=== PATIENT | male | born 1940 | race Caucasian/White ===

== ENCOUNTER → 2022-08-27 | Outpatient (CLI) | payer MEDICARE ==
[2022-08-27 15:00] LABS: INR 1.1 (<1.2); Partial Thromboplastin Time 27.4 sec (22.0-30.0); Prothrombin Time 11.1 sec (9.0-12.0)
[2022-08-27 20:15] LABS: Appearance,Urine Clear (Clear); Bilirubin,Urine Negative (Negative); Blood,Urine Negative (Negative); Color,Urine Yellow (Yellow); Ketones,Urine Negative (Negative); Nitrite,Urine Negative (Negative); PH, Urine 6.5 (5.0-8.0); Specific Gravity,Urine 1.014 (1.001-1.030); Urobilinogen,Urine 0.2 (0.2,1.0)
[2022-08-27 21:25] LABS: HCT 47.1 % (39.6-50.0); HGB 15.6 g/dL (13.0-17.0); MCH 28.8 pg (27.0-32.0); MCHC 33.1 g/dL (32.0-37.0); MCV 86.9 fL (80.0-97.0); Mean Platelet Volume 12.5 fL (9.5-12.2); NRBC Per 100 WBC 0 /100 WBCS (0.0-0.0); Platelet Count 140 X 10*3/uL (140-440); RBC 5.42 X 10*6/uL (4.40-5.60); RDW 13.7 % (11.5-14.5); WBC 8.31 X 10*3/uL (4.50-10.00)
[2022-08-27 22:33] LABS: African American GFR (CKD) 97.8 (60.0-200.0); Albumin 4.8 g/dL (3.8-4.9); Albumin/Globulin Ratio 2.53 (1.60-3.17); Anion Gap 11.1 mmol/L (10.00-18.00); BUN/Creat Ratio 18.88 Ratio (12.00-20.00); Blood Urea Nitrogen 15.1 mg/dL (9.0-27.0); Calcium 10.5 mg/dL (8.7-10.3); Carbon Dioxide 26.9 mmol/L (20.0-27.5); Globulin 1.9 g/dL (1.6-3.3); Non-African American GFR(CKD) 84.4 (60.0-200.0); Potassium 4.3 mmol/L (3.5-5.5); Total Bilirubin 0.6 mg/dL (0.30-1.20); Total Protein 6.7 g/dL (6.2-8.2)
== END | disposition home or self-care (01) ==
LOC: EEVIPCON 12:17 → LABWHC1 12:17
PROVIDERS: ATTEND Orthopaedic Surgery
DX: Z01.812 Encounter for preprocedural laboratory examination (principal); M16.12 Unilateral primary osteoarthritis, left hip
CPT/HCPCS: 36415; 80053; 81003; 85027; 85610; 85730; 87070; 93005

== ENCOUNTER 2022-09-05 10:19 | Observation (INO) | payer MEDICARE ==
[2022-08-30 13:32] VITALS: BMI 30.5
[~2022-09-05 10:19] MED LIST: ACETAMINOPHEN TAB 500 MG TAB PO PRN; DEXAMETHASONE SOD PHOSPHATE 10 MG/ML 1 ML VIAL IV PRN; DEXAMETHASONE SOD PHOSPHATE 4 MG/ML 1 ML VIAL IV ONE; DOCUSATE 100 MG CAP PO PRN; FAMOTIDINE 20 MG/2 ML VIAL IVP PRN; HYDROmorphone 0.5 MG/0.5 ML SYRINGE IVP PRN; KETOROLAC 15 MG/ML 1 ML VIAL IVP PRN; LIDOCAINE 1% (10MG/ML) FOR IV START INTRADERMA PRN; MIDAZOLAM 2 MG/2 ML VIAL IV PRN; ONDANSETRON 4 MG/2 ML VIAL IVP ONE; ONDANSETRON 4 MG/2 ML VIAL IVP PRN; ROPIVACAINE/EPI/CLONIDINE/KET 50 ML SYRINGE MISCELLANE PRN; TRANEXAMIC ACID IN NACL,ISO-OS 1,000 MG in SALINE 1 100ML.BAG IV PRN; TRANEXAMIC ACID IN NACL,ISO-OS 1,000 MG in SALINE 1 100ML.BAG IVPB PRN; oxyCODONE ER 10 MG TAB.ER.12H PO PRN
[2022-09-05] MEDS: LACTATED RINGERS 1,000 ML IV SCH ×3 (11:28→20:14)
[2022-09-05] MEDS ORDERED: fentaNYL (PF) 50 MCG/ML 2 ML AMP IVP ONE (11:43)
[2022-09-05] MEDS ORDERED: MIDAZOLAM 2 MG/2 ML VIAL IVP ONE (11:43)
[2022-09-05] MEDS ORDERED: NEOSTIGMINE 1 MG/ML 10 ML VIAL ONE (12:22)
[2022-09-05] MEDS ORDERED: SUCCINYLCHOLINE CHLORIDE 200 MG/10 ML VIAL IV ONE (12:22)
[2022-09-05] MEDS ORDERED: LIDOCAINE 2% INJ 20 MG/ML (2 ML VIAL) ONE (12:22)
[2022-09-05] MEDS ORDERED: ROPIVACAINE 5 MG/ML 30 ML VIAL ONE (12:22)
[2022-09-05] MEDS ORDERED: TRANEXAMIC ACID IN NACL,ISO-OS 1,000 MG/100 ML BAG ONE (12:22)
[2022-09-05] MEDS ORDERED: ROCURONIUM 10 MG/ML (5 ML VIAL) IV ONE (12:22)
[2022-09-05] MEDS ORDERED: SODIUM CHLORIDE 0.9% (PF) 10 ML VIAL ONE (12:22)
[2022-09-05] MEDS ORDERED: GLYCOPYRROLATE 0.2 MG/ML 2 ML VIAL ONE (12:22)
[2022-09-05] MEDS ORDERED: PROPOFOL 10 MG/ML 20 ML VIAL IV ONE (12:22)
[2022-09-05] MEDS ORDERED: fentaNYL (PF) 50 MCG/ML 2 ML AMP ONE (12:22)
[2022-09-05] MEDS ORDERED: MIDAZOLAM 2 MG/2 ML VIAL ONE (12:22)
--- NOTE | 2022-09-05 12:50 | P.ANPRN ---
Procedure Note - Anesthesia - Nerve Block Performed Left Mathieu Time Out Performed: Yes (:43) Date of Procedure: 09/05/22 Procedure Start Time: Procedure Stop Time: :50 Location of Patient: PreOp Indication: Acute Post-Operative Pain, Requested by Surgeon (DR Gonzales) Sedation Type: Sedate with meaningful contact maintained Preparation: Sterile Prep Position: Supine Catheter: None Needle Types: Pajunk Needle Gauge: 21 Ultrasound used to visualize needle placement: Yes Ultrasound used to observe medication spread: Yes Injectate: 0.5% Ropivacaine (see comment for volume) (20cc + 5cc PF Normal saline) Blood Aspirated: No Pain Paresthesia on Injection Noted: No Resistance on Injection: Normal Image Stored and Saved: Yes Events: Uneventful and Well Tolerated
[2022-09-05] MEDS ORDERED: LACTATED RINGERS 1,000 ML IV ONE (13:17)
--- NOTE | 2022-09-05 15:03 | FL ---
EXAMINATION TYPE: FL guidance operating room DATE OF EXAM: 09/05/2022 HISTORY: Fluoroscopy time Total dose area product (DAP) in mGy*cm? (or similar): 2.3292 IMPRESSION: 1. Fluoroscopy time.
[2022-09-05] MEDS ORDERED: HYDROmorphone 0.5 MG/0.5 ML SYRINGE IVP PRN ×2 (15:14)
[2022-09-05] MEDS ORDERED: hydrOXYzine pamoate 25 MG CAP PO PRN (15:14)
[2022-09-05] MEDS ORDERED: ONDANSETRON 4 MG/2 ML VIAL IVP PRN (15:14)
[2022-09-05] MEDS ORDERED: NALOXONE 0.4 MG/ML 1 ML VIAL IV PRN (15:14)
--- NOTE | 2022-09-05 15:20 | P.OP ---
Date of Procedure: 09/05/22 Preoperative Diagnosis: 1. Severe left hip osteoarthritis 2. Prior right total hip arthroplasty Postoperative Diagnosis: Same Procedure(s) Performed: Left direct anterior total hip arthroplasty Implants: 1. Andrew Trident II Acetabular Cup, Size #52 2. [place] Insignia Size # 6 Femoral Stem, Standard Offset 3. Biolox delta femoral head, 36 mm, - 5 neck Anesthesia: KYLEEA, regional Surgeon: Tee Gonzales Solar Energy Engineer #1: Tashia Crocker Estimated Blood Loss (ml): 200 IV fluids (ml): 1,100 Pathology: none sent Condition: stable Disposition: PACU Indications for Procedure: I had a long discussion with the patient in the office on the potential risks and complications of an elective total hip replacement through a direct anterior approach. Risks discussed include, but are certainly not limited to, risks from anesthesia, superficial infection requiring local wound care or antibiotics, deep sawyer-prosthetic joint infection and the treatment required to eradicate infection, intraoperative fracture, postoperative periprosthetic fracture, damage to local blood vessels or nerves particularly the lateral femoral cutaneous nerve, delayed wound healing requiring local wound care or possibly hallman rgical debridement, hip dislocation, leg length discrepancy, soft tissue irritation around the total hip implant such as iliopsoas tendinitis or trochanteric bursitis, wear and osteolysis from the implants, squeaking or audible noises, groin pain, thigh pain, heterotopic ossification, stiffness, aseptic loosening of the implants, dissatisfaction with surgical outcome, need for revision surgery, DVT, PE, swelling of the operative extremity, acute coronary event, stroke, failure to thrive, and possibly loss of life or limb. The patient understands that while these are the most common complications after an elective hip replacement there are certainly other less common complications possible. They were given ample time to ask questions regarding the potential complications of a hip replacement. Following our discussion the patient provided their verbal and written consent to go forward with an elective total hip replacement. Operative Findings: Prior to surgery before positioning the patient on the [place] table the patient's operative left hip felt long compared to the right side which had a prior total hip replacement. During surgery measurements were made with trial and final implants in place showing that we gave 3-4 mm of length for stability. Following surgery the patient's left leg was slightly long compared to the right. Prior to surgery the patient stated that his left leg felt long compared to the right and that he had been told by a therapist that his left leg was long. We discussed that I could not shorten his left leg due to concerns with stability. He voiced his understanding of this. Description of Procedure: The patient was identified in the preoperative holding area and the correct hip was marked with my initials. I reviewed the procedure and consent with the patient. All of their questions were answered. The patient was then brought back into the operating room by anesthesia. While on the [facility] anesthesia was administered by the anesthesia team. Preoperative antibiotics and tranexamic acid were also given. After the patient was under anesthesia I examined their ankles to determine their preoperative leg length discrepancy. The skin over the anterior aspect of the hip was shaved to remove hair over the site of planned incision. Both feet and ankles were padded with webril and boots for the [place] were applied. The patient was then carefully transferred onto the [place] table. A perineal post was immediately placed. The arms were placed on arm holders and were well-padded. Both boots were secured to the spars on the [place] table. The patient was positioned so that the pelvis was centered over the post. Nonsterile drapes were applied. A timeout was performed identifying the correct patient, operative extremity, and procedure. At this point fluoroscopy was brought in to take preoperative images of the pelvis and operative hip. Using the standing AP pelvis from the office as a template, a comparable image was obtained with fluoroscopy. A metallic bar was used to create a bi-ischial line for use as a reference to leg length adjustments during the procedure. Global offset was also measured on both the operative and nonoperative leg. Fluoroscopy was then brought out and a pre-scrub using a chlorhexidine scrub brush was performed. The operative limb was then prepped and draped in the standard sterile fashion. An anterior longitudinal incision was made lateral and distal to the ASIS. The skin and subcutaneous tissues were incised sharply. The underlying tensor fascia was identified and incised in its midportion. The fascia was dissected free from the underlying muscle and the muscle belly was retracted. A blunt tipped cobra retractor was placed over the superior neck under the muscle fibers of the gluteus minimus. The deep enveloping fascia of the tensor was incised. The anterior leash of vessels were then identified and cauterized. The fascia between the rectus and the capsule was then incised and the pre-capsular fat was excised. A second Cobra was placed inferior to the neck. The interval between the rectus and iliocapsularis and the hip capsule was developed and a retractor was placed carefully over the anterior rim of the acetabulum. A T-shaped anterior capsulotomy was performed. The superior capsular leaflet was left in place in the inferior capsular flap was excised. The Cobra retractors were placed intracapsularly. We then made a femoral neck osteotomy according to preoperative and intraoperative templating and confirmed the level of the osteotomy using fluoroscopic imaging. The femoral head was removed, passed off to the back table, and sized. The superior capsular flap was excised. Retractors were placed circumferentially exposing the acetabulum. We then circumferentially debrided the acetabulum free of labrum and osteophytes. The pulvinar was removed to fully visualize the cotyloid fossa. We then sequ entially reamed to achieve peripheral fit and excellent bleeding subchondral bone. The socket was thoroughly irrigated. The acetabular component was impacted into the appropriate position using fluoroscopy to guide version, inclination, and depth of insertion taking care to have a comparable image of the AP pelvis to the standing image taken in the office. An excellent press-fit was achieved and final position was confirmed using fluoroscopy. The press fit was augmented with bony cancellus dome screws. The liner was then impacted into the socket. Attention was then turned to the femur. The remnant dorsal lateral capsule was excised. The short external rotators were visible and protected. A bone hook was used to confirm appropriate translation of the trochanter away from the acetabulum. The leg was then extended and adducted and the bone hook was used to elevate the femur for broaching. A box osteotome and blunt tipped canal sound was then utilized to gain access to the femoral canal. We then sequentially broached the femur in appropriate anteversion until excellent torsional stability was achieved. The neck cut was brought flush to the trial broach with a calcar planar. A trial neck and head were then placed onto the broach and the hip was atraumatically reduced under direct visualization. External rotation to 90 was performed to assess stability. Fluoroscopy was brought in. An AP and lateral fluoroscopic image of the proximal femur was obtained to assess position and fill of the trial broach. An AP of the pelvis was then obtained and matched to the preoperative image taken. A bi-ischial bar was then placed and measurements were taken to assess changes in length and offset. The hip was then carefully dislocated, the proximal femur was exposed, and the trial implants were removed. The wound and proximal femur was thoroughly irrigated using sterile saline and pulsatile lavage. The final femoral implant was dispensed and gently tapped into place generating an excellent press-fit. The trunnion was cleansed and the final head was tapped into place to engage the Fowler taper. The acetabulum was irrigated and visualized to be free of debris. The hip was carefully reduced. Stability was checked clinically with external rotation to 90 and there was no evidence of instability. Final fluoroscopic images were taken. The wound was then thoroug hly irrigated and soaked with a dilute Betadine rinse for 3 minutes. 3 L of sterile saline was irrigated through the wound using pulsatile lavage. Local anesthetic cocktail was injected into the soft tissues around the surgical field. A deep drain was placed. The wound was then closed in layers. A sterile dressing was placed over the surgical incision and drain site. The drapes were taken down and the patient was carefully transferred off of the [place] table. Following removal of the boots the leg lengths felt acceptable. The patient was then taken to recovery room having tolerated the procedure well. Tashia Crocker PA-C was required as a skilled emergency medicine physician assistant for patient positioning, surgical exposure, retraction, placement of implants, and closure of the surgical wound. PLAN: The patient can weight-bear as tolerated on the operative extremity. 2 doses of postoperative antibiotics. DVT prophylaxis with aspirin 81 mg twice a day based on preoperative risk stratification. Physical therapy for gait training. Discontinue drain postoperative day #1 if output is less than 100 mL per shift.
[2022-09-05] MEDS: ASPIRIN 81 MG PO SCH (20:24)
[2022-09-06] MEDS: LACTATED RINGERS 1,000 ML IV SCH ×3 (01:28→12:07)
[2022-09-06] MEDS: HYDROcodone/APAP 5-325MG 1 EACH TAB PO PRN ×3 (08:02→18:41)
[2022-09-06] MEDS: ASPIRIN 81 MG PO SCH ×2 (08:02→23:03)
[2022-09-06] MEDS ORDERED: AMMONIUM LACTATE 12% LOTION 225 GM BTL TOPICAL PRN (09:48)
[2022-09-06] MEDS ORDERED: lisinopriL 20 MG TAB PO STA (09:51)
[2022-09-06] MEDS: MULTIVITAMINS, THERA 1 EACH TAB PO SCH (10:33)
[2022-09-06] MEDS: TAMSULOSIN 0.4 MG CAP.ER.24H PO SCH (12:07)
[2022-09-06 12:26] LABS: Basophils # (A) 0.02 X 10*3/uL (0.00-0.10); Basophils % (A) 0.1 %; Eosinophils # (A) 0 X 10*3/uL (0.04-0.35); Eosinophils % (A) 0 %; HCT 38.2 % (39.6-50.0); HGB 12.9 g/dL (13.0-17.0); Immature Grans, Automated 0.6 %; Lymphocytes # (A) 1.44 X 10*3/uL (0.90-5.00); Lymphocytes % (A) 8.7 %; MCH 29.1 pg (27.0-32.0); MCHC 33.8 g/dL (32.0-37.0); Mean Platelet Volume 11.7 fL (9.5-12.2); Monocytes # (A) 1.28 X 10*3/uL (0.20-1.00); Monocytes % (A) 7.7 %; NRBC Per 100 WBC 0 /100 WBCS (0.0-0.0); Neutrophils % (A) 82.9 %; Platelet Count 133 X 10*3/uL (140-440); RBC 4.44 X 10*6/uL (4.40-5.60); RDW 13.5 % (11.5-14.5); WBC 16.54 X 10*3/uL (4.50-10.00)
--- NOTE | 2022-09-06 13:00 | P.PN ---
Subjective Progress Note Date: 09/06/22 Patient is an 82-year-old male who is status post left direct anterior total hip arthroplasty on 09/05/22. Today is postoperative day #1. Patient examined bedside this morning with Dr. Gonzales. He states he is having minimal pain in the left hip. He is ambulating to the bathroom with a walker. He is overall doing well with no complaints. He is planning to discharge to rehab. Vital signs stable. Objective - Vital Signs Vital signs: Vital Signs Temp 97.6 F 09/06/22 08:00 Pulse 57 L 09/06/22 08:00 Resp 18 09/06/22 08:00 BP 142/63 09/06/22 08:00 Pulse Ox 93 L 09/06/22 08:00 FiO2 Intake & Output 09/05/22 09/06/22 09/06/22 18:59 06:59 18:59 Intake Total 1650 Output Total 200 1465 356 Balance 1450 -1465 -356 Weight 91.9 kg Intake: IV 1650 Output: Drainage 265 Left Hip 265 Urine 1200 Straight 600 Post Void Residual 356 Estimated Blood Loss 200 Other: # Voids 1 - Exam On examination, patient is sitting up in bed in no apparent distress. He is alert and orientated 3. On inspection of the left hip, there is a clean, dry, intact OpSite surgical dressing in place. No bleeding or drainage to the dressing. There is mild swelling of the thigh, the thigh is soft and compressible. Motor and sensory function is intact on the left lower extremity. Femoral nerve function intact. Left lower extremity is warm and well perfused with brisk capillary refill distally. Calf is soft and nontender to palpation pain - Labs CBC & Chem 7: 09/06/22 06:44 Labs: Abnormal Lab Results - Last 24 Hours (Table) 09/06/22 Range/Units 06:44 WBC 16.54 H (4.50-10.00) X 10*3/uL Hgb 12.9 L (13.0-17.0) g/dL Hct 38.2 L (39.6-50.0) % Plt Count 133 L (140-440) X 10*3/uL Immature Gran # 0.10 H (0.00-0.04) X 10*3/uL Neutrophils # 13.70 H (1.80-7.70) X 10*3/uL Monocytes # 1.28 H (0.20-1.00) X 10*3/uL Eosinophils # 0 L (0.04-0.35) X 10*3/uL Assessment and Plan Assessment: Status-post left direct anterior total hip arthroplasty on 09/05/22. Post- operative day #1. Plan: - Weight-bear to tolerance on operative extremity the walker. - Physical therapy for gait and balance training. - Keep operative dressing in place. Do not remove. Patient may shower over dressing. - Pain medications as needed. - Aspirin 81 mg BID for DVT prophylaxis. - Internal medicine for sawyer-op medical management. - Case management consult for discharge planning. Anticipate discharge to rehab next 1-2 days.
--- NOTE | 2022-09-06 16:11 | P.CONS ---
History of Present Illness - Reason for Consult Consult date: 09/06/22 Medical management postop left total hip arthroplasty - History of Present Illness This is a very pleasant 82-year-old male who was recently admitted under orthopedic services and underwent left total hip arthroplasty postop day #1. Patient reports he follows with Dr. Alanis in the outpatient setting with a past medical history of hypertension. Patient has never been a smoker. Patient denies illicit drug use and reports to occasional rare alcohol use. Patient reports in the past he did have issues with an enlarged prostate and was evaluated by urology underwent surgical intervention and has not had problems s tahmina. Patient postoperatively having some mild retention and did have indwelling Snow catheter which was removed. Patient required straight catheterization. Will add Flomax and recommend to monitor intake and output closely and do postvoid residuals to monitor for any further retention. Patient normally takes combination lisinopril/hydrochlorothiazide and will resume lisinopril and hold the hydrochlorothiazide for now as blood pressure is slightly elevated. Patient did work with physical therapy and does not have much help with the home as his has medical issues and working on possible [employer] for some strength and mobility. Patient reports he had a previous right hip done and went to rehab and did really well. Patient denies chest pain or shortness of breath with no reports of nausea or vomiting noted in tolerating diet. Review Of Systems: Constitutional: No fever, no chills, no night sweats. No weight change. No weakness, fatigue or lethargy. No daytime sleepiness. EENT: No headache. No blurred vision or double vision, no loss of vision. No loss of Hearing, no ringing in the ears, no dizziness. No nasal drainage or congestion. No epistaxis. No sore throat. Lungs: No shortness of breath, cough, no sputum production. No wheezing. Cardiovascular: No chest pain, no lower extremity edema. No palpitations. No paroxysmal nocturnal dyspnea. No orthopnea. No lightheadedness or dizziness. No syncopal episodes. Abdominal: No abdominal pain. No nausea, vomiting. No diarrhea. No constipation. No bloody or tarry stools.. No loss of appetite. Genitourinary: No dysuria, increased frequency, urgency. Reporting some mild urinary retention. Musculoskeletal: No myalgias. No muscle weakness, no gait dysfunction, no frequent falls. No back pain. No neck pain. Reports mild left hip pain although managed currently Integumentary: No wounds, no lesions. No rash or pruritus. No unusual bruising. No change in hair or nails. Neurologic: No aphasia. No facial droop. No change in mentation. No head injury. No headache. No paralysis. No paresthesia. Psychiatric: No depression. No anxiety. No mood swings. Endocrine: No abnormal blood sugars. No weight change. No excessive sweating or thirst. No cold intolerance. PHYSICAL EXAMINATION: GENERAL: The patient is alert and oriented x4, Well developed, well nourished. HEENT: Pupils are round and equally reacting to light. EOMI. no scleral icterus. No conjunctival pallor. Normocephalic, atraumatic. No pharyngeal erythema. No thyromegaly. CARDIOVASCULAR: S1 and S2 muffled PULMONARY: Breath sounds clear to auscultation with no wheezing or rhonchi noted. ABDOMEN: soft. Nontender on exam. non-distended, normoactive bowel sounds. No palpable organomegaly. MUSCULOSKELETAL: No joint swelling or deformity. EXTREMITIES: No cyanosis, clubbing, or pedal edema. Left surgical hip incision dressing is dry and intact with no surrounding swelling or erythema noted, soft and palpable NEUROLOGICAL: Gross neurological examination did not reveal any focal deficits. Diffuse weakness SKIN: No rashes. Assessment: Status post left total hip arthroplasty History of osteoarthritis Postoperative urinary retention, most likely medication effect of anesthesia History of hypertension History of enlarged prostate with surgical intervention back in 2005 GI prophylaxis DVT prophylaxis Full code Plan: Recommend to continue with current medications and management per orthopedic services. Patient did work with physical therapy and would like to go to rehab with case management following and awaiting insurance authorization Patient did have incentive spirometer at the bedside and encourage the patient continue using at least 10 times every hour while awake Patient does have history of hypertension and normally takes combination lisinopril/hydrochlorothiazide although will just resume lisinopril for now and monitor vital signs. Patient okay to resume medications on discharge. Labs reviewed and within normal limits Patient did have some postoperative urinary retention recommend postvoid residuals and straight cath as needed and will add Flomax Encouraged increased activity as tolerated with orthopedic restrictions and recommend working with physical therapy daily We will continue to follow with orthopedics during hospitalization. Thank you kindly for this consultation. The impression and plan of care has been dictated by Yamini Lindsay, nurse practitioner as directed. Dr. Nikko MD I have performed a history and examination and MDM of this patient, discussed the same with the dictator, and agree with the dictator's assessment and plan as written ,documented as a scribe. Based on total visit time, I have performed more than 50% of the visit. Any additional findings or plans will be noted. Past Medical History Past Medical History: Cancer, Hypertension, Osteoarthritis (OA) Additional Past Medical History / Comment(s): hx skin cancer, radiation tx for acne as child, partial thyroidectomy for lump., glaucoma, states hx of low platelet count since . History of Any Multi-Drug Resistant Organisms: None Reported Past Surgical History: Adenoidectomy, Joint Replacement, Prostate Surgery, Tonsillectomy Additional Past Surgical History / Comment(s): total right hip (2015)., Turp (2005), enedina inguinal hernia (2000), 1/3 of thyroid removed (1982)., compound fx lle (1949), Past Anesthesia/Blood Transfusion Reactions: No Reported Reaction Additional Past Anesthesia/Blood Transfusion Reaction / Comm: ponv with ether Past Psychological History: No Psychological Hx Reported Smoking Status: Never smoker Past Alcohol Use History: Occasional Past Drug Use History: None Reported - Past Family History Father Family Medical History: Cancer Brother(s) Family Medical History: Cancer Additional Family Medical History / Comment(s): leukemia Medications and Allergies Home Medications Medication Instructions Recorded Confirmed Type Acetaminophen [Tylenol Extra 1,000 mg PO BID PRN 08/30/22 08/30/22 History Strength] Ammonium Lactate Lotion 1 applic TOPICAL DIRECTED PRN 08/30/22 08/30/22 History [Lac-Hydrin 12% Lotion] Yady Back & Body 1 tab PO DIRECTED PRN 08/30/22 History Ginkgo Biloba (Unknown Dose) 1 dose PO DAILY 08/30/22 History Ibuprofen [Advil] 200 mg PO DIRECTED PRN 08/30/22 08/30/22 History Latanoprost/Pf [Latanoprost 0.005% 1 drop BOTH EYES HS 08/30/22 08/30/22 History Eye Drop] Lisinopril-Hctz 20-25 mg 1 tab PO DAILY 08/30/22 08/30/22 History [Zestoretic 20-25] Multivitamins, Thera [Multivitamin 1 tab PO DAILY 08/30/22 08/30/22 History (formulary)] Allergies Allergy/AdvReac Type Severity Reaction Status Date / Time ciprofloxacin [From Cipro] Allergy Rash/Hives Verified 09/05/22 10:51 Physical Exam Vitals: Vital Signs Temp Pulse Pulse Resp BP Pulse Ox 09/06/22 08:00 97.6 F 57 L 18 142/63 93 L 09/06/22 00:08 98.7 F 68 18 165/61 98 09/05/22 19:16 98.4 F 63 18 133/61 95 09/05/22 17:30 69 154/69 97 09/05/22 17:15 63 144/59 95 09/05/22 17:00 72 162/80 96 09/05/22 16:47 16 174/74 09/05/22 16:45 63 172/74 96 09/05/22 16:30 73 141/58 91 L 09/05/22 16:15 56 L 179/61 100 09/05/22 16:00 57 L 18 170/74 97 09/05/22 15:53 51 L 16 144/65 99 09/05/22 15:37 53 L 16 156/69 99 09/05/22 15:22 62 16 164/72 100 09/05/22 15:07 97.0 F L 76 16 176/72 100 09/05/22 11:55 65 16 139/71 97 09/05/22 10:52 97.8 F 64 16 163/72 97 Intake and Output 09/05/22 09/06/22 09/06/22 22:59 06:59 14:59 Intake Total 100 Output Total 60 1405 Balance 40 -1405 Intake: IV 100 Output: Drainage 60 205 Left Hip 60 205 Urine 1200 Straight 600 Other: # Voids 1 Weight 91.9 kg Results CBC & Chem 7: 09/06/22 06:44
[2022-09-06] MEDS: HYDROmorphone 0.5 MG/0.5 ML SYRINGE IVP PRN ×2 (20:23→23:03)
[2022-09-06] MEDS: LATANOPROST 0.005% OPHTH DROPS 2.5 ML BTL BOTH EYES SCH (23:03)
[2022-09-07] MEDS: LACTATED RINGERS 1,000 ML IV SCH ×2 (00:33→05:34)
[2022-09-07] MEDS: HYDROcodone/APAP 5-325MG 1 EACH TAB PO PRN ×4 (03:44→21:43)
[2022-09-07] MEDS: TAMSULOSIN 0.4 MG CAP.ER.24H PO SCH (07:36)
[2022-09-07] MEDS: MULTIVITAMINS, THERA 1 EACH TAB PO SCH (07:36)
[2022-09-07] MEDS: ASPIRIN 81 MG PO SCH ×2 (07:36→21:43)
--- NOTE | 2022-09-07 13:33 | P.DS ---
Providers Date of admission: 09/06/22 16:24 Expected date of discharge: 09/07/22 Attending physician: Tee Gonzales Consults: 09/05/22 15:18 Consult Physician Routine Consulting Provider: Devyn Ortega Consult Reason/Comments: medical managemnet Do you want consulting provider notified?: Yes Primary care physician: Silvia Navarrete [facility] Course: This is an 82-year-old male with known history of degenerative arthritis of the left hip. The patient presents for evaluation. After discussion and consideration patient elects to proceed with a direct anterior left total hip arthroplasty. The patient is seen pre-operatively by Dr. Navarrete and cleared for surgery. Patient is admitted to [facility] on 09/05/22 for direct anterior left total hip arthroplasty. The procedures performed without complication or sequelae. The patient is doing well postoperatively. Labs and vital signs are stable on day of discharge. Patient is examined bedside this morning with Dr. Gonzales. Patient states he's been ambulating with a walker with only mild pain in left hip. He was up to the bedside chair yesterday. His pain is well-controlled at this time. New complaints or concerns this morning. On examination, the patient is sitting up in bed in no apparent distress. He is alert and oriented 3. On inspection of the left hip, there is a clean, dry, intact surgical dressing in place. No bleeding or drainage through the dressing. There is mild swelling of the thigh, the thigh is soft and compressible. Motor and sensory function is intact of the left lower extremity. Femoral nerve function intact. Left lower extremity is warm and well-perfused. Calf is soft and nontender to palpation. Patient is discharged to rehab in good condition, pending obtaining insurance auth and clearance from internal medicine. Patient to follow-up in the office in 2 weeks at [facility]. Please see med rec for accurate list of discharge medications. Plan - Discharge Summary Discharge Rx Participant: Yes New Discharge Prescriptions: New Aspirin 81 mg PO BID 30 Days #60 tab Docusate [Colace] 100 mg PO BID #60 capsule Omeprazole 40 mg PO DAILY 30 Days #30 cap Diclofenac Sodium [Voltaren] 75 mg PO BID 30 Days #60 tab HYDROcodone/APAP 5-325MG [[place] 5-325] 1 - 2 tab PO Q6HR PRN 7 Days #32 tab PRN Reason: Pain No Action Latanoprost/Pf [Latanoprost 0.005% Eye Drop] 1 drop BOTH EYES HS Ammonium Lactate Lotion [Lac-Hydrin 12% Lotion] 1 applic TOPICAL DIRECTED PRN PRN Reason: Dry Skin Multivitamins, Thera [Multivitamin (formulary)] 1 tab PO DAILY Ibuprofen [Advil] 200 mg PO DIRECTED PRN PRN Reason: Pain Acetaminophen [Tylenol Extra Strength] 1,000 mg PO BID PRN PRN Reason: Pain Lisinopril-Hctz 20-25 mg [Zestoretic 20-25] 1 tab PO DAILY Ginkgo Biloba (Unknown Dose) 1 dose PO DAILY Yady Back & Body 1 tab PO DIRECTED PRN PRN Reason: Pain Discharge Medication List Acetaminophen [Tylenol Extra Strength] 1,000 mg PO BID PRN 08/30/22 [History] Ammonium Lactate Lotion [Lac-Hydrin 12% Lotion] 1 applic TOPICAL DIRECTED PRN 08/30/22 [History] Yady Back & Body 1 tab PO DIRECTED PRN 08/30/22 [History] Ginkgo Biloba (Unknown Dose) 1 dose PO DAILY 08/30/22 [History] Ibuprofen [Advil] 200 mg PO DIRECTED PRN 08/30/22 [History] Latanoprost/Pf [Latanoprost 0.005% Eye Drop] 1 drop BOTH EYES HS 08/30/22 [History] Lisinopril-Hctz 20-25 mg [Zestoretic 20-25] 1 tab PO DAILY 08/30/22 [History] Multivitamins, Thera [Multivitamin (formulary)] 1 tab PO DAILY 08/30/22 [History] Aspirin 81 mg PO BID 30 Days #60 tab 09/07/22 [Rx] Diclofenac Sodium [Voltaren] 75 mg PO BID 30 Days #60 tab 09/07/22 [Rx] Docusate [Colace] 100 mg PO BID #60 capsule 09/07/22 [Rx] HYDROcodone/APAP 5-325MG [[place] 5-325] 1 - 2 tab PO Q6HR PRN 7 Days #32 tab [Rx] Omeprazole 40 mg PO DAILY 30 Days #30 cap 09/07/22 [Rx] Follow up Appointment(s)/Referral(s): Tee Gonzales MD [Medical Doctor] - 09/17/22 1:30 pm
--- NOTE | 2022-09-07 19:38 | P.PN ---
Subjective Progress Note Date: 09/07/22 - Reason for Consult Consult date: 09/06/22 Medical management postop left total hip arthroplasty, hypertension history - History of Present Illness This is a very pleasant 82-year-old male who was recently admitted under orthopedic services and underwent left total hip arthroplasty postop day #1. Patient reports he follows with Dr. Alanis in the outpatient setting with a past medical history of hypertension. Patient has never been a smoker. Patient denies illicit drug use and reports to occasional rare alcohol use. Patient r eports in the past he did have issues with an enlarged prostate and was evaluated by urology underwent surgical intervention and has not had problems since. Patient postoperatively having some mild retention and did have indwelling Snow catheter which was removed. Patient required straight cathet erization. Will add Flomax and recommend to monitor intake and output closely and do postvoid residuals to monitor for any further retention. Patient normally takes combination lisinopril/hydrochlorothiazide and will resume lisinopril and hold the hydrochlorothiazide for now as blood pressure is s lightly elevated. Patient did work with physical therapy and does not have much help with the home as his has medical issues and working on possible ECF for some strength and mobility. Patient reports he had a previous right hip done and went to rehab and did really well. Patient denies chest pain or shortness of breath with no reports of nausea or vomiting noted in tolerating diet. 09/07/2022 Patient is seen and evaluated in follow-up this morning currently sitting up in the chair continues to report some left pain discomfort and difficulty with getting up out of the bed and position changes. Patient reports his pain is currently managed and patient was started on Flomax yesterday and having improvements in urination not requiring straight catheterization or Snow. Patient is currently afebrile with no reports of chest pain or shortness of breath and is reporting some abdominal fullness reporting he has not had a bowel movement yet. Patient does have positive bowel sounds on exam and reports to passing gas. We'll order as needed suppository and continue stool softeners. Patient being followed by orthopedics and currently awaiting prior authorization for rehab. Patient does not have help at home and is having difficulty with ADLs. Patient reports he was not able to get up and stand long enough at the sink to brush his teeth. Review of systems: Constitutional: No reports of fatigue, fever, or chills Cardiovascular: No reports of chest pain or palpitations Respiratory: No reports of shortness of breath or cough GI: No reports of nausea, vomiting, or diarrhea : No reports of dysuria or retention Neurovascular: reports of weakness and some continued left hip discomfort All medications have been reviewed PHYSICAL EXAMINATION: GENERAL: The patient is alert and oriented x4, Well developed, well nourished. HEENT: Pupils are round and equally reacting to light. EOMI. no scleral icterus. No conjunctival pallor. Normocephalic, atraumatic. No pharyngeal erythema. No thyromegaly. CARDIOVASCULAR: S1 and S2 muffled PULMONARY: Breath sounds clear to auscultation with no wheezing or rhonchi noted. ABDOMEN: soft. Nontender on exam. non-distended, normoactive bowel sounds. No palpable organomegaly. MUSCULOSKELETAL: No joint swelling or deformity. EXTREMITIES: No cyanosis, clubbing, or pedal edema. Left surgical hip incision dressing is dry and intact with no surrounding swelling or erythema noted, soft and palpable NEUROLOGICAL: Gross neurological examination did not reveal any focal deficits. Diffuse weakness SKIN: No rashes. Assessment: Status post left total hip arthroplasty, postop day 2 History of osteoarthritis Postoperative urinary retention, most likely medication effect of anesthesia, improved History of hypertension History of enlarged prostate with surgical intervention back in 2005 GI prophylaxis DVT prophylaxis Full code Plan: Recommend to continue with current medications and management per orthopedic services. Patient did work with physical therapy and would like to go to rehab with case management following and awaiting insurance authorization. Patient feels he is having difficulty getting up and with position changes and not able to perform ADLs. Patient does not have help at home and has stairs that are very thin and an old [place] house that make it difficult and high risk for falling. Patient encouraged to continue incentive spirometer at the bedside at least 10 times every hour while awake Patient does have history of hypertension and normally takes combination lisinopril/hydrochlorothiazide although will just resume lisinopril for now and monitor vital signs. Patient okay to resume medications on discharge. Labs reviewed and within normal limits Patient did have some postoperative urinary retention and was started on Flomax and voiding with no difficulties Patient reports to passing gas but has not had a bowel movement yet. Will continue stool softeners and add as needed suppository Encouraged increased activity as tolerated with orthopedic restrictions and recommend working with physical therapy daily We will continue to follow with orthopedics during hospitalization. Thank you kindly for this consultation. The impression and plan of care has been dictated by Yamini Lindsay, nurse practitioner as directed. Dr. Nikko MD I have performed a history and examination and MDM of this patient, discussed the same with the dictator, and agree with the dictator's assessment and plan as written ,documented as a scribe. Based on total visit time, I have performed more than 50% of the visit. Any additional findings or plans will be noted. Objective - Vital Signs Vital signs: Vital Signs Temp 98.3 F 09/07/22 07:10 Pulse 71 09/07/22 08:00 Resp 18 09/07/22 08:00 BP 144/70 09/07/22 07:10 Pulse Ox 96 09/07/22 07:10 FiO2 Intake & Output 09/06/22 09/07/22 09/07/22 18:59 06:59 18:59 Intake Total 1200 Output Total 556 300 Balance -556 900 Intake: Intake, IV Titration 1200 Amount Lactated Ringers 1,000 ml 1200 @ 100 mls/hr IV .Q10H MELISSA Rx#:[id number] Output: Urine 200 300 Post Void Residual 356 Other: Voiding Method Urinal Urinal # Voids 1 - Labs CBC & Chem 7: 09/06/22 06:44 Labs: Abnormal Lab Results - Last 24 Hours (Table) 09/06/22 Range/Units 06:44 WBC 16.54 H (4.50-10.00) X 10*3/uL Hgb 12.9 L (13.0-17.0) g/dL Hct 38.2 L (39.6-50.0) % Plt Count 133 L (140-440) X 10*3/uL Immature Gran # 0.10 H (0.00-0.04) X 10*3/uL Neutrophils # 13.70 H (1.80-7.70) X 10*3/uL Monocytes # 1.28 H (0.20-1.00) X 10*3/uL Eosinophils # 0 L (0.04-0.35) X 10*3/uL
[2022-09-07] MEDS ORDERED: bisacodyL 10 MG SUPP RECTAL PRN (19:39)
[2022-09-07] MEDS ORDERED: lisinopriL 20 MG TAB PO STA (19:40)
[2022-09-07] MEDS: LATANOPROST 0.005% OPHTH DROPS 2.5 ML BTL BOTH EYES SCH (21:43)
[2022-09-07] MEDS: SENNOSIDES 8.6 MG TAB PO SCH (21:43)
[2022-09-08] MEDS: SENNOSIDES 8.6 MG TAB PO SCH ×2 (08:23→20:22)
[2022-09-08] MEDS: MULTIVITAMINS, THERA 1 EACH TAB PO SCH (08:23)
[2022-09-08] MEDS: ASPIRIN 81 MG PO SCH ×2 (08:23→20:22)
[2022-09-08] MEDS: TAMSULOSIN 0.4 MG CAP.ER.24H PO SCH (08:23)
[2022-09-08] MEDS: lisinopriL 20 MG TAB PO SCH (08:23)
--- NOTE | 2022-09-08 09:13 | P.PN ---
Subjective Progress Note Date: 09/08/22 Principal diagnosis: Primary osteoarthritis left hip. Status post total left hip arthroplasty with direct anterior approach. Rakan is postop day #3, status post total left hip arthroplasty was direct anterior approach. He is awaiting transfer to inpatient rehab. He currently [place] s complained of constipation. He denies nausea or vomiting. He is afebrile and vital signs are stable. Objective - Vital Signs Vital signs: Vital Signs Temp 99.4 F 09/08/22 07:47 Pulse 60 09/08/22 07:47 Resp 19 09/08/22 07:47 BP 162/66 09/08/22 07:47 Pulse Ox 97 09/08/22 07:47 FiO2 Intake & Output 09/07/22 09/08/22 09/08/22 18:59 06:59 18:59 Output Total 400 Balance -400 Output: Urine 400 Other: Voiding Method Urinal Urinal # Voids 2 2 - Exam This is a pleasant 82-year-old male in no acute distress. He is alert and o riented 3. Exam of the left hip reveals that his dressing is clean, dry and intact. There is mild soft tissue swelling to the hip and thigh. No erythema or ecchymosis. Full foot and ankle motion without difficulty or pain. Neurovascular status to the left lower extremity is intact. - Labs CBC & Chem 7: 09/06/22 06:44 Assessment and Plan (1) Osteoarthritis of left hip Current Visit: Yes Status: Acute Code(s): M16.12 - UNILATERAL PRIMARY OSTE OARTHRITIS, LEFT HIP SNOMED Code(s): 584717144305331 (2) S/P total left hip arthroplasty Current Visit: Yes Status: Acute Code(s): Z96.642 - PRESENCE OF LEFT ARTIFICIAL HIP JOINT SNOMED Code(s): 108415133053 Plan: The clinical findings are discussed with the patient. Nursing is going to try a suppository with him this morning. He is to continue to get up with nursing staff for ambulation. We are planning discharge to inpatient rehab when placement is arranged.
[2022-09-08 09:22] LABS: Basophils # (A) 0.02 X 10*3/uL (0.00-0.10); Basophils % (A) 0.2 %; Eosinophils # (A) 0.12 X 10*3/uL (0.04-0.35); Eosinophils % (A) 1.2 %; HCT 35.1 % (39.6-50.0); Immature Grans, Automated 0.4 %; Lymphocytes # (A) 1.62 X 10*3/uL (0.90-5.00); Lymphocytes % (A) 15.6 %; MCH 29.6 pg (27.0-32.0); MCHC 34.2 g/dL (32.0-37.0); MCV 86.5 fL (80.0-97.0); Monocytes % (A) 9.6 %; NRBC Per 100 WBC 0 /100 WBCS (0.0-0.0); Neutrophils # (A) 7.61 X 10*3/uL (1.80-7.70); Platelet Count 117 X 10*3/uL (140-440); RBC 4.06 X 10*6/uL (4.40-5.60); RDW 13.3 % (11.5-14.5); WBC 10.41 X 10*3/uL (4.50-10.00)
--- NOTE | 2022-09-08 14:33 | P.PN ---
Subjective Progress Note Date: 09/08/22 This is a very pleasant 82-year-old male who was recently admitted under orthopedic services and underwent left total hip arthroplasty postop day #1. Patient reports he follows with Dr. Alanis in the outpatient setting with a past medical history of hypertension. Patient has never been a smoker. Patient denies illicit drug use and reports to occasional rare alcohol use. Patient reports in the past he did have issues with an enlarged prostate and was evaluated by urology underwent surgical intervention and has not had problems since. Patient postoperatively having some mild retention and did have indwelling Snow catheter which was removed. Patient required straight catheterization. Will add Flomax and recommend to monitor intake and output closely and do postvoid residuals to monitor for any further retention. Patient normally takes combination lisinopril/hydrochlorothiazide and will resume lisinopril and hold the hydrochlorothiazide for now as blood pressure is slightly elevated. Patient did work with physical therapy and does not have much help with the home as his has medical issues and working on possible ECF for some strength and mobility. Patient reports he had a previous right hip done and went to rehab and did really well. Patient denies chest pain or shortness of breath with no reports of nausea or vomiting noted in tolerating diet. 09/07/2022 Patient is seen and evaluated in follow-up this morning currently sitting up in the chair continues to report some left pain discomfort and difficulty with getting up out of the bed and position changes. Patient reports his pain is currently managed and patient was started on Flomax yesterday and having improve ments in urination not requiring straight catheterization or Snow. Patient is currently afebrile with no reports of chest pain or shortness of breath and is reporting some abdominal fullness reporting he has not had a bowel movement yet. Patient does have positive bowel sounds on exam and reports to passing gas. We'll order as needed suppository and continue stool softeners. Patient being followed by orthopedics and currently awaiting prior authorization for rehab. Patient does not have help at home and is having difficulty with ADLs. Patient reports he was not able to get up and stand long enough at the sink to brush his teeth. 5/6. Patient seen and examined WBC this morning is 10.4, hemoglobin 12, MCV 86.5. Complaining of constipation. Denies any nausea or vomiting. REVIEW OF SYSTEMS: CONSTITUTIONAL: No fever, no malaise,. CARDIOVASCULAR: No chest pain, no palpitations, no syncope. PULMONARY: No shortness of breath, no cough, GASTROINTESTINAL: As mentioned above NEUROLOGICAL: No headaches, no weakness, PHYSICAL EXAMINATION: GENERAL: The patient is alert and oriented x3, not in any acute distress. Well developed, well nourished. HEENT: Pupils are round and equally reacting to light. EOMI. No scleral icterus. No conjunctival pallor. Normocephalic, atraumatic. No pharyngeal erythema. No thyromegaly. CARDIOVASCULAR: S1 and S2 present. No murmurs, rubs, or gallops. PULMONARY: Chest is clear to auscultation, no wheezing or crackles. ABDOMEN: Soft, nontender, nondistended, normoactive bowel sounds. No palpable organomegaly. MUSCULOSKELETAL: No joint swelling or deformity. EXTREMITIES: Left hip surgical incision seen NEUROLOGICAL: Gross neurological examination did not reveal any focal deficits. SKIN: No rashes. Assessment and plan Status post left total hip arthroplasty History of osteoarthritis Postoperative urinary retention, most likely medication effect of anesthesia, improved History of hypertension History of enlarged prostate with surgical intervention back in 2005 Plan Monitor vital signs Monitor CBC Monitor CMP Continue bowel regimen Encourage ambulation Continue lisinopril Patient did have some postoperative urinary retention and was started on Flomax and voiding with no difficulties PT and OT recommended rehab, waiting on placement DVT prophylaxis: Objective - Vital Signs Vital signs: Vital Signs Temp 99.4 F 09/08/22 07:47 Pulse 60 09/08/22 07:47 Resp 19 09/08/22 07:47 BP 162/66 09/08/22 07:47 Pulse Ox 97 09/08/22 07:47 FiO2 Intake & Output 09/07/22 09/08/22 09/08/22 18:59 06:59 18:59 Output Total 400 Balance -400 Output: Urine 400 Other: Voiding Method Urinal Urinal Urinal # Voids 2 2 # Bowel Movements 1 - Labs CBC & Chem 7: 09/08/22 05:05 Labs: Abnormal Lab Results - Last 24 Hours (Table) 09/08/22 Range/Units 05:05 WBC 10.41 H (4.50-10.00) X 10*3/uL RBC 4.06 L (4.40-5.60) X 10*6/uL Hgb 12.0 L (13.0-17.0) g/dL Hct 35.1 L (39.6-50.0) % Plt Count 117 L (140-440) X 10*3/uL
[2022-09-08] MEDS: LATANOPROST 0.005% OPHTH DROPS 2.5 ML BTL BOTH EYES SCH (20:22)
--- NOTE | 2022-09-09 08:45 | P.PN ---
Subjective The patient is doing well this morning in regards to his left hip. He has minimal discomfort and is not taking pain medications. His biggest complaint is constipation. He states that he is passing gas has had several small bowel movements but is still constipated. Objective - Vital Signs Vital signs: Vital Signs Temp 98.2 F 09/09/22 07:12 Pulse 67 09/09/22 07:12 Resp 18 09/09/22 07:12 BP 151/65 09/09/22 07:12 Pulse Ox 91 L 09/09/22 07:12 FiO2 Intake & Output 09/08/22 09/09/22 09/09/22 18:59 06:59 18:59 Output Total 300 Balance -300 Output: Urine 300 Other: Voiding Method Urinal Urinal # Voids 3 2 # Bowel Movements 1 1 - Exam A focused exam of the left hip was conducted. The dressing over the anterior aspect of the hip is intact with no drainage. The drain sponge had saturated and dried blood and was changed. There is no drainage from the drain site. Femoral nerve function is intact. Distally motor and sensory function are intact in the foot. - Labs CBC & Chem 7: 09/08/22 05:05 Labs: Abnormal Lab Results - Last 24 Hours (Table) 09/08/22 Range/Units 05:05 WBC 10.41 H (4.50-10.00) X 10*3/uL RBC 4.06 L (4.40-5.60) X 10*6/uL Hgb 12.0 L (13.0-17.0) g/dL Hct 35.1 L (39.6-50.0) % Plt Count 117 L (140-440) X 10*3/uL Assessment and Plan Plan: Treatment as previously outlined. The patient is awaiting final approval for discharge to rehab in [facility].
[2022-09-09] MEDS: MULTIVITAMINS, THERA 1 EACH TAB PO SCH (08:46)
[2022-09-09] MEDS: TAMSULOSIN 0.4 MG CAP.ER.24H PO SCH (08:46)
[2022-09-09] MEDS: SENNOSIDES 8.6 MG TAB PO SCH ×2 (08:47→21:19)
[2022-09-09] MEDS: lisinopriL 20 MG TAB PO SCH (08:47)
[2022-09-09] MEDS: ASPIRIN 81 MG PO SCH ×2 (08:47→21:19)
--- NOTE | 2022-09-09 13:58 | P.PN ---
Subjective Progress Note Date: 09/09/22 This is a very pleasant 82-year-old male who was recently admitted under orthopedic services and underwent left total hip arthroplasty postop day #1. Patient reports he follows with Dr. Alanis in the outpatient setting with a past medical history of hypertension. Patient has never been a smoker. Patient denies illicit drug use and reports to occasional rare alcohol use. Patient reports in the past he did have issues with an enlarged prostate and was evaluated by urology underwent surgical intervention and has not had problems since. Patient postoperatively having some mild retention and did have indwelling Snow catheter which was removed. Patient required straight catheterization. Will add Flomax and recommend to monitor intake and output closely and do postvoid residuals to monitor for any further retention. Patient normally takes combination lisinopril/hydrochlorothiazide and will resume lisinopril and hold the hydrochlorothiazide for now as blood pressure is slightly elevated. Patient did work with physical therapy and does not have much help with the home as his has medical issues and working on possible ECF for some strength and mobility. Patient reports he had a previous right hip done and went to rehab and did really well. Patient denies chest pain or shortness of breath with no reports of nausea or vomiting noted in tolerating diet. 09/07/2022 Patient is seen and evaluated in follow-up this morning currently sitting up in the chair continues to report some left pain discomfort and difficulty with getting up out of the bed and position changes. Patient reports his pain is currently managed and patient was started on Flomax yesterday and having improve ments in urination not requiring straight catheterization or Snow. Patient is currently afebrile with no reports of chest pain or shortness of breath and is reporting some abdominal fullness reporting he has not had a bowel movement yet. Patient does have positive bowel sounds on exam and reports to passing gas. We'll order as needed suppository and continue stool softeners. Patient being followed by orthopedics and currently awaiting prior authorization for rehab. Patient does not have help at home and is having difficulty with ADLs. Patient reports he was not able to get up and stand long enough at the sink to brush his teeth. 56. Patient seen and examined WBC this morning is 10.4, hemoglobin 12, MCV 86.5. Complaining of constipation. Denies any nausea or vomiting. 09/09. Patient seen and examined. Had small bowel movements but still complaining of constipation REVIEW OF SYSTEMS: CONSTITUTIONAL: No fever, no malaise,. CARDIOVASCULAR: No chest pain, no palpitations, no syncope. PULMONARY: No shortness of breath, no cough, GASTROINTESTINAL: As mentioned above NEUROLOGICAL: No headaches, no weakness, PHYSICAL EXAMINATION: GENERAL: The patient is alert and oriented x3, not in any acute distress. Well developed, well nourished. HEENT: Pupils are round and equally reacting to light. EOMI. No scleral icterus. No conjunctival pallor. Normocephalic, atraumatic. No pharyngeal erythema. No thyromegaly. CARDIOVASCULAR: S1 and S2 present. No murmurs, rubs, or gallops. PULMONARY: Chest is clear to auscultation, no wheezing or crackles. ABDOMEN: Soft, nontender, nondistended, normoactive bowel sounds. No palpable organomegaly. MUSCULOSKELETAL: No joint swelling or deformity. EXTREMITIES: Left hip surgical incision seen NEUROLOGICAL: Gross neurological examination did not reveal any focal deficits. SKIN: No rashes. Assessment and plan Status post left total hip arthroplasty History of osteoarthritis Postoperative urinary retention, most likely medication effect of anesthesia, improved History of hypertension History of enlarged prostate with surgical intervention back in 2005 Plan Monitor vital signs Monitor CBC Monitor CMP Continue bowel regimen Encourage ambulation Continue lisinopril Patient did have some postoperative urinary retention and was started on Flomax and voiding with no difficulties PT and OT recommended rehab, waiting on placement Patient medically stable for discharge DVT prophylaxis: Objective - Vital Signs Vital signs: Vital Signs Temp 98.2 F 09/09/22 07:12 Pulse 67 09/09/22 08:00 Resp 18 09/09/22 08:00 BP 151/65 09/09/22 07:12 Pulse Ox 91 L 09/09/22 07:12 FiO2 Intake & Output 09/08/22 09/09/22 09/09/22 18:59 06:59 18:59 Output Total 300 Balance -300 Output: Urine 300 Other: Voiding Method Urinal Urinal Urinal # Voids 3 2 # Bowel Movements 1 1 1 - Labs CBC & Chem 7: 09/08/22 05:05
[2022-09-09] MEDS: LACTATED RINGERS 1,000 ML IV SCH (19:44)
[2022-09-09] MEDS: LATANOPROST 0.005% OPHTH DROPS 2.5 ML BTL BOTH EYES SCH (21:19)
[2022-09-10 01:41] VITALS: TEMP 98.6
[2022-09-10 07:29] VITALS: BP 142/47; PULSE 76; RESP 16
[2022-09-10] MEDS: SENNOSIDES 8.6 MG TAB PO SCH (08:24)
[2022-09-10] MEDS: MULTIVITAMINS, THERA 1 EACH TAB PO SCH (08:24)
[2022-09-10] MEDS: lisinopriL 20 MG TAB PO SCH (08:24)
[2022-09-10] MEDS: ASPIRIN 81 MG PO SCH (08:24)
[2022-09-10] MEDS: TAMSULOSIN 0.4 MG CAP.ER.24H PO SCH (08:24)
--- NOTE | 2022-09-10 09:28 | P.DS ---
Providers Date of admission: 09/06/22 16:24 Expected date of discharge: 09/10/22 Attending physician: Tee Gonzales Consults: 09/05/22 15:18 Consult Physician Routine Consulting Provider: Devyn Ortega Consult Reason/Comments: medical managemnet Do you want consulting provider notified?: Yes Primary care physician: Silvia Navarrete [place] [facility] Course: This is an 82-year-old male with known history of degenerative arthritis of the left hip. The patient presents for evaluation. After discussion and consideration patient elects to proceed with a direct anterior left total hip arthroplasty. The patient is seen pre-operatively by Dr. Navarrete and cleared for surgery. Patient is admitted to [facility] on 09/05/22 for direct anterior left total hip arthroplasty. The procedures performed without complication or sequelae. The patient is doing well postoperatively. Labs and vital signs are stable on day of discharge on post-op day #5. Patient is examined bedside this morning with Dr. Gonzales. Patient states he's been ambulating with a walker. He is currently up to the bedside chair. His pain is well-controlled at this time. New complaints or concerns this morning. Patient is awaiting a bed at rehab at this time. On examination, the patient is sitting up in bed in no apparent distress. He is alert and oriented 3. On inspection of the left hip, there is a clean, dry, intact surgical dressing in place. No bleeding or drainage through the dressing. There is mild swelling of the thigh, the thigh is soft and compressible. Motor and sensory function is intact of the left lower extremity. Femoral nerve function intact. Left lower extremity is warm and well-perfused. Calf is soft and nontender to palpation. Patient is discharged to rehab in good condition, pending availability of a bed at rehab and clearance from internal medicine. Patient to follow-up in the office in 2 weeks at [facility]. Please see med rec for accurate list of discharge medications. Plan - Discharge Summary Discharge Rx Participant: Yes New Discharge Prescriptions: New Aspirin 81 mg PO BID 30 Days #60 tab Docusate [Colace] 100 mg PO BID #60 capsule Omeprazole 40 mg PO DAILY 30 Days #30 cap Diclofenac Sodium [Voltaren] 75 mg PO BID 30 Days #60 tab HYDROcodone/APAP 5-325MG [Monroe 5-325] 1 - 2 tab PO Q6HR PRN 7 Days #32 tab PRN Reason: Pain No Action Latanoprost/Pf [Latanoprost 0.005% Eye Drop] 1 drop BOTH EYES HS Ammonium Lactate Lotion [Lac-Hydrin 12% Lotion] 1 applic TOPICAL DIRECTED PRN PRN Reason: Dry Skin Multivitamins, Thera [Multivitamin (formulary)] 1 tab PO DAILY Ibuprofen [Advil] 200 mg PO DIRECTED PRN PRN Reason: Pain Acetaminophen [Tylenol Extra Strength] 1,000 mg PO BID PRN PRN Reason: Pain Lisinopril-Hctz 20-25 mg [Zestoretic 20-25] 1 tab PO DAILY Ginkgo Biloba (Unknown Dose) 1 dose PO DAILY Yady Back & Body 1 tab PO DIRECTED PRN PRN Reason: Pain Discharge Medication List Acetaminophen [Tylenol Extra Strength] 1,000 mg PO BID PRN 08/30/22 [History] Ammonium Lactate Lotion [Lac-Hydrin 12% Lotion] 1 applic TOPICAL DIRECTED PRN 08/30/22 [History] Yady Back & Body 1 tab PO DIRECTED PRN 08/30/22 [History] Ginkgo Biloba (Unknown Dose) 1 dose PO DAILY 08/30/22 [History] Ibuprofen [Advil] 200 mg PO DIRECTED PRN 08/30/22 [History] Latanoprost/Pf [Latanoprost 0.005% Eye Drop] 1 drop BOTH EYES HS 08/30/22 [History] Lisinopril-Hctz 20-25 mg [Zestoretic 20-25] 1 tab PO DAILY 08/30/22 [History] Multivitamins, Thera [Multivitamin (formulary)] 1 tab PO DAILY 08/30/22 [History] Aspirin 81 mg PO BID 30 Days #60 tab 09/07/22 [Rx] Diclofenac Sodium [Voltaren] 75 mg PO BID 30 Days #60 tab 09/07/22 [Rx] Docusate [Colace] 100 mg PO BID #60 capsule 09/07/22 [Rx] HYDROcodone/APAP 5-325MG [Monroe 5-325] 1 - 2 tab PO Q6HR PRN 7 Days #32 tab 09/07/22 [Rx] Omeprazole 40 mg PO DAILY 30 Days #30 cap 09/07/22 [Rx] Follow up Appointment(s)/Referral(s): Tee Gonzales MD [Medical Doctor] - 09/17/22 1:30 pm Activity/Diet/Wound Care/Special Instructions: Weight bear to tolerance on operative extremity with a walker. Keep operative dressing in place until follow-up in the office. Call the office if dressing becomes saturated or falls off. May shower over dressing. Take pain medications as needed. Take aspirin 81mg twice a day x 4 weeks for blo od clot prevention. Follow-up in the office at [facility] in two weeks. Call the office with any questions or concerns, Discharge Disposition: TRANSFER TO SNF/ECF
[2022-09-10 11:03] LABS: Basophils # (A) 0.03 X 10*3/uL (0.00-0.10); Basophils % (A) 0.3 %; Eosinophils # (A) 0.31 X 10*3/uL (0.04-0.35); Eosinophils % (A) 3.3 %; HCT 35.4 % (39.6-50.0); HGB 11.7 g/dL (13.0-17.0); Lymphocytes # (A) 1.87 X 10*3/uL (0.90-5.00); Lymphocytes % (A) 19.9 %; MCHC 33.1 g/dL (32.0-37.0); MCV 87.6 fL (80.0-97.0); Mean Platelet Volume 11.2 fL (9.5-12.2); Monocytes # (A) 0.78 X 10*3/uL (0.20-1.00); Monocytes % (A) 8.3 %; NRBC Per 100 WBC 0 /100 WBCS (0.0-0.0); Neutrophils # (A) 6.32 X 10*3/uL (1.80-7.70); Neutrophils % (A) 67.2 %; Platelet Count 160 X 10*3/uL (140-440); RBC 4.04 X 10*6/uL (4.40-5.60); RDW 13.3 % (11.5-14.5)
--- NOTE | 2022-09-10 13:31 | P.PN ---
Subjective Progress Note Date: 09/10/22 This is a very pleasant 82-year-old male who was recently admitted under orthopedic services and underwent left total hip arthroplasty postop day #1. Patient reports he follows with Dr. Alanis in the outpatient setting with a past medical history of hypertension. Patient has never been a smoker. Patient denies illicit drug use and reports to occasional rare alcohol use. Patient reports in the past he did have issues with an enlarged prostate and was evaluated by urology underwent surgical intervention and has not had problems since. Patient postoperatively having some mild retention and did have indwelling Snow catheter which was removed. Patient required straight catheterization. Will add Flomax and recommend to monitor intake and output closely and do postvoid residuals to monitor for any further retention. Patient normally takes combination lisinopril/hydrochlorothiazide and will resume lisinopril and hold the hydrochlorothiazide for now as blood pressure is slightly elevated. Patient did work with physical therapy and does not have much help with the home as his has medical issues and working on possible ECF for some strength and mobility. Patient reports he had a previous right hip done and went to rehab and did really well. Patient denies chest pain or shortness of breath with no reports of nausea or vomiting noted in tolerating diet. 09/07/2022 Patient is seen and evaluated in follow-up this morning currently sitting up in the chair continues to report some left pain discomfort and difficulty with getting up out of the bed and position changes. Patient reports his pain is currently managed and patient was started on Flomax yesterday and having improve ments in urination not requiring straight catheterization or Snow. Patient is currently afebrile with no reports of chest pain or shortness of breath and is reporting some abdominal fullness reporting he has not had a bowel movement yet. Patient does have positive bowel sounds on exam and reports to passing gas. We'll order as needed suppository and continue stool softeners. Patient being followed by orthopedics and currently awaiting prior authorization for rehab. Patient does not have help at home and is having difficulty with ADLs. Patient reports he was not able to get up and stand long enough at the sink to brush his teeth. 56. Patient seen and examined WBC this morning is 10.4, hemoglobin 12, MCV 86.5. Complaining of constipation. Denies any nausea or vomiting. 09/09. Patient seen and examined. Had small bowel movements but still complaining of constipation 09/10. Patient seen and examined. No acute issues overnight. Patient keen to go home REVIEW OF SYSTEMS: CONSTITUTIONAL: No fever, no malaise,. CARDIOVASCULAR: No chest pain, no palpitations, no syncope. PULMONARY: No shortness of breath, no cough, GASTROINTESTINAL: As mentioned above NEUROLOGICAL: No headaches, no weakness, PHYSICAL EXAMINATION: GENERAL: The patient is alert and oriented x3, not in any acute distress. Well developed, well nourished. HEENT: Pupils are round and equally reacting to light. EOMI. No scleral icterus. No conjunctival pallor. Normocephalic, atraumatic. No pharyngeal erythema. No thyromegaly. CARDIOVASCULAR: S1 and S2 present. No murmurs, rubs, or gallops. PULMONARY: Chest is clear to auscultation, no wheezing or crackles. ABDOMEN: Soft, nontender, nondistended, normoactive bowel sounds. No palpable organomegaly. MUSCULOSKELETAL: No joint swelling or deformity. EXTREMITIES: Left hip surgical incision seen NEUROLOGICAL: Gross neurological examination did not reveal any focal deficits. SKIN: No rashes. Assessment and plan Status post left total hip arthroplasty History of osteoarthritis Postoperative urinary retention, most likely medication effect of anesthesia, improved History of hypertension History of enlarged prostate with surgical intervention back in 2005 Plan Monitor vital signs Monitor CBC Monitor CMP Continue bowel regimen Encourage ambulation Continue lisinopril Patient did have some postoperative urinary retention and was started on Flomax and voiding with no difficulties Patient medically stable for discharge DVT prophylaxis: Objective - Vital Signs Vital signs: Vital Signs Temp 98.6 F 09/10/22 07:03 Pulse 76 09/10/22 07:03 Resp 16 09/10/22 07:03 BP 142/47 09/10/22 07:03 Pulse Ox 95 09/10/22 07:03 FiO2 Intake & Output 09/09/22 09/10/22 09/10/22 18:59 06:59 18:59 Intake Total 700 Output Total 300 Balance 400 Intake: Oral 700 Output: Urine 300 Other: Voiding Method Urinal Toilet Toilet Urinal Urinal # Voids 3 3 # Bowel Movements 1 - Labs CBC & Chem 7: 09/10/22 06:19 Labs: Abnormal Lab Results - Last 24 Hours (Table) 09/10/22 Range/Units 06:19 RBC 4.04 L (4.40-5.60) X 10*6/uL Hgb 11.7 L (13.0-17.0) g/dL Hct 35.4 L (39.6-50.0) % Immature Gran # 0.09 H (0.00-0.04) X 10*3/uL
== END 2022-09-10 12:07 | disposition home health service (06) ==
LOC: OR 10:19 → 4SSUR 15:08 → OR 09-06 16:24 → 4SSUR 09-06 16:24
PROVIDERS: ADMIT Orthopaedic Surgery; ATTEND Orthopaedic Surgery
DX: M16.12 Unilateral primary osteoarthritis, left hip (principal); I10 Essential (primary) hypertension; R00.2 Palpitations; H91.90 Unspecified hearing loss, unspecified ear; H40.9 Unspecified glaucoma; R26.81 Unsteadiness on feet; Z97.3 Presence of spectacles and contact lenses; Z96.641 Presence of right artificial hip joint; Z98.890 Other specified postprocedural states; E89.0 Postprocedural hypothyroidism; R33.8 Other retention of urine; Z85.828 Personal history of other malignant neoplasm of skin; Z92.3 Personal history of irradiation; Z79.899 Other long term (current) drug therapy; Z88.1 Allergy status to other antibiotic agents; Z80.6 Family history of leukemia
CPT/HCPCS: 97116; 97530; 97161; 97535 ×2; 97165; 64447; 86900; 86901; 85025 ×3; 86850; 88300; 73501; 27130; G0378 ×5; C1776; J2250; J0330; J1100; J2710; J0690 ×2; J2405; J3010; J2795; J1885; J2704; J1170; J2001